=== PATIENT | female | born 1985 | race Caucasian/White ===

== ENCOUNTER 2016-11-10 19:25 | Inpatient (IN) | payer MEDICAID ==
[~2016-11-10] VITALS: Ht 154.9 cm; Wt 65.7 kg
[2016-11-10 20:00] VITALS: RESP 18
[2016-11-10] MEDS ORDERED: LACTATED RINGER'S 1,000 ML IV SCH (20:03)
[2016-11-10] MEDS ORDERED: LIDOCAINE 1% (MPF) 30 ML INJ ONE (20:03)
[2016-11-10] MEDS ORDERED: AMPICILLIN 2 GM/NS (PMX) 100 ML ONE (20:03)
[2016-11-10 20:11] VITALS: Ht 154.9 cm; Wt 65.7 kg
[2016-11-10] MEDS ORDERED: PRENAT PO (20:13)
--- NOTE | 2016-11-10 20:21 | LDN ---
Date/Time of Note Date/Time of Note DATE: 11/10/16 TIME: 20:20 Delivery Summary Weeks of Gestation 38+wks GA Placenta Delivered: Spontaneously Meconium: none Episiotomy: No Perineal laceration: 1 Anesthesia type: None Estimated blood loss: 200 Sponge & Needle done & correct: Yes All needle counts correct: Yes Any foreign bodies felt in the: No Problems: BRIAN KAHN M.D. Nov 10, 2016 20:21
--- NOTE | 2016-11-10 20:22 | TRIAGE ---
OB Triage Datetime Report Generated by CPN: 11/10/2016 20:22 Datetime: 11/10/2016 19:54 Stage of : OB Triage Datetime: 11/10/2016 19:50 EGA: 38.1 Datetime: 11/10/2016 19:47 Vaginal Exam Dilatation (cms): 10.0 Effacement (%): 100 Station: -1 Exam By: M JASON Vaginal Bleeding: Normal Show Cervix, Position: Midposition Datetime: 11/10/2016 19:46 Labor Evaluation Monitor Mode: External Contraction Comments: APPLIED Heart Rate Monitor Mode: External US Comments: APPLIED Datetime: 11/10/2016 19:44 Stage of : OB Triage Datetime: 11/10/2016 19:33 Time of Arrival: 11/10/2016 19:21 Arrived By: Ambulatory Arrived From: Home Chief Complaint: Abd/back pain. Ucs since 1400 Movement: Present Contractions: Regular Time Contractions Began: 11/10/2016 14:00 Contractions: q 3min Rupture of Membranes: Denies Vaginal Bleeding: Scant Vaginal Discharge: Denies Recent Sexual Intercouse: Denies Abdominal Trauma: Not Applicable Patient Complaints: Contractions; Back Pain Initial Plan: ZHAO
--- NOTE | 2016-11-10 20:24 | HP ---
Date/Time of Note Date/Time of Note DATE: 11/10/16 TIME: 20:23 OB - History Hx of Present Free Text/Dictation @38+wks GA in labor : 3 Para: 2 Care: Good Care Ultrasounds: Normal mid trimester US Obstetrical Complications: None Medical Complications: None Past Family/Social History * Past Medical, Surgical, Family and Obstetric Histories reviewed from chart. OB Admission Exam Physical Exam Abdomen: WNL Extremities: Normal Cervical Dilatation: 10cm Effacement: 100% Station: -1 Membranes: Intact Heart Rate: 140's Accelerations: Accelerations Present Decelerations: No Decelerations Varibility: Moderate Contractions on Admission: < 5 Minutes Apart OB Assessment/Plan Reason for admission: observation Plan: Expectant Management BRIAN KAHN M.D. Nov 10, 2016 20:24
[2016-11-10] MEDS ORDERED: AMPICILLIN 2 GM/NS (PMX) 100 ML IV ONE (20:30)
[2016-11-10] MEDS ORDERED: METHYLERGONOVINE 0.2 MG INJ IM PRN (20:30)
[2016-11-10] MEDS ORDERED: MISOPROSTOL 200 MCG TAB PR PRN (20:30)
[2016-11-10] MEDS ORDERED: LACTATED RINGER'S 1,000 ML IV PRN (20:30)
[2016-11-10] MEDS ORDERED: CARBOPROST 250 MCG INJ IM PRN (20:30)
[2016-11-10] MEDS ORDERED: LIDOCAINE 1% (MPF) 30 ML INJ INJ PRN (20:30)
[2016-11-10] MEDS ORDERED: OXYTOCIN 30 UNITS/LR 500 ML IV PRN (20:30)
[2016-11-10] MEDS ORDERED: OXYTOCIN 30 UNITS/LR 500 ML IV SCH ×2 (20:30)
[2016-11-10 20:41] LABS: ADD SCAN DIFF NO
[2016-11-10 20:44] LABS: BASOPHILS % 0.2 % (0.0-2.0); EOSINOPHILS # 0.1 10^3/ul (0.0-0.5); EOSINOPHILS % 0.4 % (0.0-7.0); HEMATOCRIT 37.2 % (37.0-47.0); HEMOGLOBIN 13.1 g/dl (12.0-16.0); LYMPHOCYTES # 2.3 10^3/ul (0.8-2.9); LYMPHOCYTES % 19.5 % (15.0-51.0); MEAN CORPUSCULAR HEMOGLOBIN 31.8 pg (29.0-33.0); MEAN CORPUSCULAR HGB CONC 35.2 g/dl (32.0-37.0); MEAN CORPUSCULAR VOLUME 90.3 fl (82.0-101.0); MEAN PLATELET VOLUME 10.5 fl (7.4-10.4); MONOCYTE # 0.9 10^3/ul (0.3-0.9); MONOCYTES % 7.4 % (0.0-11.0); NEUTROPHIL # 8.4 10^3/ul (1.6-7.5); NEUTROPHILS % 71.6 % (39.0-77.0); PLATELET COUNT 307 10^3/UL (140-415); RED BLOOD COUNT 4.12 10^6/ul (4.20-5.40); RED CELL DISTRIBUTION WIDTH 12.8 % (11.5-14.5); WHITE BLOOD COUNT 11.7 10^3/ul (4.8-10.8)
[2016-11-10 20:58] LABS: INR 0.98
[2016-11-10 20:59] LABS: PARTIAL THROMBOPLASTIN TIME 30.8 Sec (25.0-35.0)
[2016-11-10] MEDS ORDERED: IBUPROFEN 600 MG TAB PO PRN (21:30)
[2016-11-10 22:35] VITALS: BP 135/66; PULSE 78; RESP 18
[2016-11-11] MEDS ORDERED: LANOLIN 7 GM TUBE TOP PRN
[2016-11-11] MEDS ORDERED: WITCH HAZEL/GLYCERIN PAD PR PRN
[2016-11-11] MEDS ORDERED: BENZOCAINE 20% 56 ML SPRAY TOP PRN
[2016-11-11] MEDS ORDERED: METHYLERGONOVINE 0.2 MG INJ IM PRN
[2016-11-11] MEDS ORDERED: OXYTOCIN 30 UNITS/LR 500 ML IV PRN
[2016-11-11] MEDS ORDERED: CARBOPROST 250 MCG INJ IM PRN
[2016-11-11] MEDS ORDERED: MISOPROSTOL 200 MCG TAB PR PRN
[2016-11-11] MEDS ORDERED: ZOLPIDEM 5 MG TAB PO PRN
[2016-11-11] MEDS ORDERED: SENNA/DOCUSATE NA (8.6MG/50MG) TAB PO PRN
[2016-11-11] MEDS ORDERED: OXYCODONE/ASPIRIN (4.88/325) TAB PO PRN
[2016-11-11] MEDS: IBUPROFEN 600 MG TAB PO SCH ×5 (00:08→23:59)
[2016-11-11] MEDS ORDERED: AMPICILLIN 1 GM/NS (PMX) 50 ML IV SCH (00:30)
[2016-11-11] MEDS: LACTATED RINGER'S 1,000 ML IV* SCH ×3 (00:56→15:35)
[2016-11-11 01:00] VITALS: BP 128/64; PULSE 74; RESP 18
[2016-11-11 03:15] VITALS: BP 131/68; PULSE 76; RESP 18
[2016-11-11 06:56] LABS: ADD SCAN DIFF NO
[2016-11-11 07:02] LABS: BASOPHILS % 0.1 % (0.0-2.0); EOSINOPHILS % 0.2 % (0.0-7.0); HEMATOCRIT 33.4 % (37.0-47.0); HEMOGLOBIN 11.5 g/dl (12.0-16.0); LYMPHOCYTES # 2.5 10^3/ul (0.8-2.9); LYMPHOCYTES % 15.5 % (15.0-51.0); MEAN CORPUSCULAR HEMOGLOBIN 31.5 pg (29.0-33.0); MEAN CORPUSCULAR HGB CONC 34.4 g/dl (32.0-37.0); MEAN CORPUSCULAR VOLUME 91.5 fl (82.0-101.0); MEAN PLATELET VOLUME 10.1 fl (7.4-10.4); MONOCYTE # 1.2 10^3/ul (0.3-0.9); MONOCYTES % 7.4 % (0.0-11.0); NEUTROPHIL # 12.2 10^3/ul (1.6-7.5); PLATELET COUNT 263 10^3/UL (140-415); RED BLOOD COUNT 3.65 10^6/ul (4.20-5.40); RED CELL DISTRIBUTION WIDTH 12.8 % (11.5-14.5)
[2016-11-11 08:30] VITALS: BP 100/54; PULSE 80; RESP 18
[2016-11-11] MEDS: SENNA/DOCUSATE NA (8.6MG/50MG) TAB PO SCH ×2 (08:30→21:11)
[2016-11-11 16:19] VITALS: BP 115/64; PULSE 75; RESP 18
--- NOTE | 2016-11-11 18:38 | QN ---
Documentation Comment Post normal vaginal delivery day 1 afebrile vital signs are stable Abdomen soft uterus firm lochia moderate extremity normal ambulation encouraged Laboratory Tests Test 11/10/16 19:45 11/10/16 20:00 11/11/16 06:40 Hepatitis B Surface Antigen NEGATIVE HIV (1&2) Antibody NEGATIVE White Blood Count 11.710^3/ul 16.010^3/ul Red Blood Count 4.1210^6/ul 3.6510^6/ul Hemoglobin 13.1g/dl 11.5g/dl Hematocrit 37.2% 33.4% Mean Corpuscular Volume 90.3fl 91.5fl Mean Corpuscular Hemoglobin 31.8pg 31.5pg Mean Corpuscular Hemoglobin Concent 35.2g/dl 34.4g/dl Red Cell Distribution Width 12.8% 12.8% Platelet Count 71856^3/UL 08148^3/UL Mean Platelet Volume 10.5fl 10.1fl Neutrophils % 71.6% 76.0% Lymphocytes % 19.5% 15.5% Monocytes % 7.4% 7.4% Eosinophils % 0.4% 0.2% Basophils % 0.2% 0.1% Nucleated Red Blood Cells % 0.0/100WBC 0.0/100WBC Neutrophils # 8.410^3/ul 12.210^3/ul Lymphocytes # 2.310^3/ul 2.510^3/ul Monocytes # 0.910^3/ul 1.210^3/ul Eosinophils # 0.110^3/ul 0.010^3/ul Basophils # 0.010^3/ul 0.010^3/ul Nucleated Red Blood Cells # 0.010^3/ul 0.010^3/ul Prothrombin Time 13.0Sec Prothrombin Time Ratio 1.0 INR International Normalized Ratio 0.98 Activated Partial Thromboplast Time 30.8Sec Current Medications Medications (Trade) Dose Ordered Sig/Odin Route PRN Reason Start Time Stop Time Status Last Admin Dose Admin Ampicillin (Ampicillin 2 Gm/ NS (Pmx)) 100 ml @ ud STK-MED ONCE .ROUTE 11/10/16 20:03 11/10/16 20:04 DC Lidocaine 30 ml 30 ml STK-MED ONCE .ROUTE 11/10/16 20:03 11/10/16 20:04 DC Lactated Ringer's 1,000 ml @ 125 mls/hr Q8H IV 11/10/16 20:03 11/10/16 23:37 DC Ampicillin 100 ml @ 100 mls/hr ONCE ONCE IV 11/10/16 20:30 11/10/16 21:29 DC 11/10/16 20:37 Ampicillin (Ampicillin 1 Gm/ NS (Pmx)) 50 ml @ 100 mls/hr Q4H IV 11/11/16 00:30 11/11/16 00:30 DC Lidocaine 30 ml 30 ml ONCE PRN INJ EPISIOTOMY/TEARING 11/10/16 20:30 11/10/16 23:37 DC Oxytocin/Lactated Ringer's 500 ml @ 125 mls/hr ONCE -MAY REPEAT X1 IV 11/10/16 20:30 11/10/16 23:37 DC 11/10/16 20:34 Oxytocin/Lactated Ringer's 500 ml @ 125 mls/hr ONCE IV 11/10/16 20:30 11/10/16 23:37 DC 11/10/16 20:36 Lactated Ringer's 1,000 ml @ 2,000 mls/hr Q30M PRN IV PRE-EPIDURAL BOLUS 11/10/16 20:30 11/10/16 23:37 DC Oxytocin/Lactated Ringer's 500 ml @ 0 mls/hr ONCE PRN IV For Hemorrhage Management 11/10/16 20:30 11/10/16 23:37 DC Methylergonovine Maleate (Methergine) 0.2 mg ONCE PRN IM VAGINAL BLEEDING 11/10/16 20:30 11/10/16 23:37 DC Carboprost Tromethamine (Hemabate) 250 mcg ONCE PRN IM VAGINAL BLEEDING 11/10/16 20:30 11/10/16 23:37 DC Misoprostol (Cytotec) 1,000 mcg ONCE PRN OR VAGINAL BLEEDING 11/10/16 20:30 11/10/16 23:37 DC Ibuprofen 600 mg 600 mg ONCE PRN PO Mild Pain (Pain Score 1-3) 11/10/16 21:30 11/10/16 23:37 DC 11/10/16 21:31 Lactated Ringer's (Lr) 1,000 ml @ 125 mls/hr Q8H IV* 11/10/16 23:35 11/11/16 16:21 DC 11/11/16 00:56 Ibuprofen (Motrin) 600 mg Q6 PO 11/11/16 00:00 11/11/16 18:08 Oxycodone/Aspirin (Percodan) 2 tab Q3H PRN PO PAIN LEVEL 6-10 11/11/16 00:00 Zolpidem Tartrate (Ambien) 5 mg QHS PRN PO INSOMNIA 11/11/16 00:00 Senna/Docusate Sodium (Senokot-S) 1 tab BID PO 11/11/16 09:00 11/11/16 08:30 Senna/Docusate Sodium (Senokot-S) 1 tab BID PRN PO CONSTIPATION 11/11/16 00:00 Witch Phoebe/ Glycerin (Tucks Pads) 1 pad BEDSIDE MEDICATION PRN OR HEMORRHOID/EPISIOTMY PAIN 11/11/16 00:00 11/11/16 00:09 Benzocaine (Dermoplast Lacey) 1 spray BEDSIDE MEDICATION PRN TOP HEMORRHOID/EPISIOTMY PAIN 11/11/16 00:00 11/11/16 00:09 Lanolin ([id number]) 1 applic BEDSIDE MEDICATION PRN TOP BEDSIDE FOR HERNAN TO NIPPLES 11/11/16 00:00 11/11/16 08:30 Diphtheria/ Tetanus/Acell Pertussis 0.5 ml 0.5 ml ONCE ONCE IM* 11/12/16 09:00 11/12/16 09:01 Oxytocin/Lactated Ringer's 500 ml @ 0 mls/hr ONCE PRN IV For Hemorrhage Management 11/11/16 00:00 Methylergonovine Maleate (Methergine) 0.2 mg ONCE PRN IM VAGINAL BLEEDING 11/11/16 00:00 Carboprost Tromethamine (Hemabate) 250 mcg ONCE PRN IM VAGINAL BLEEDING 11/11/16 00:00 Misoprostol (Cytotec) 1,000 mcg ONCE PRN OR VAGINAL BLEEDING 11/11/16 00:00 MENDOZA CRUZ MD Nov 11, 2016 18:38
[2016-11-11 19:30] VITALS: BP 114/71; PULSE 71; RESP 19
[2016-11-12 03:30] VITALS: BP 101/56; PULSE 75; RESP 19
[2016-11-12] MEDS: IBUPROFEN 600 MG TAB PO SCH ×2 (05:30→12:58)
[2016-11-12 08:30] VITALS: BP 106/76; PULSE 87; RESP 19
[2016-11-12] MEDS ORDERED: DIPHTH/TET/ACEL PERTUSS (ADULT) 0.5 ML VIAL IM* ONE (09:00)
[2016-11-12] MEDS: SENNA/DOCUSATE NA (8.6MG/50MG) TAB PO SCH (10:31)
[2016-11-12 10:45] LABS: RUBELLA ANTIBODY - IGG 6.23 index
--- NOTE | 2016-11-12 10:58 | PD.PPDC ---
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
--- NOTE | 2016-11-12 10:59 | DS ---
Date/Time of Note Date/Time of Note DATE: 11/12/16 TIME: 10:58 Discharge Summary Admission/Discharge Info Admit Date/Time Nov 10, 2016 at 19:53 Discharge Date/Time November 12, 2016 at 1055 Patient Condition: Good Procedures Normal vaginal delivery Hx of Present Illness Term admitted to [facility] for labor Hospital Course Satisfactory uneventful Home Meds Reported Medications Multivit/Min/Fol Ac/Iron/Pren* ( S*) 1 Tab Tab, 1 TAB PO DAILY, TAB 11/10/16 Follow-up Plan instructions given appointment to clinic in 2 weeks Primary Care Provider Care Physician No Primary Time spent on discharge: < 30 minutes MENDOZA CRUZ MD Nov 12, 2016 10:59
== END 2016-11-12 15:00 | disposition home or self-care (01) | DRG 775 ==
LOC: OBT 19:25 → L-D 19:26 → OBT 20:06 → PP1 22:26
PROVIDERS: ADMIT Obstetrics & Gynecology; ATTEND Obstetrics & Gynecology
PROC: 10E0XZZ Delivery of Products of Conception, External Approach (ICD-10-PCS; principal; 2016-11-10)
PROC: 0HQ9XZZ Repair Perineum Skin, External Approach (ICD-10-PCS; 2016-11-10)
PROC: 3E0234Z Introduction of Serum, Toxoid and Vaccine into Muscle, Percutaneous Approach (ICD-10-PCS; 2016-11-12)
DX: O70.0 First degree perineal laceration during delivery (principal); Z23 Encounter for immunization; Z3A.38 38 weeks gestation of pregnancy; Z37.0 Single live birth
CPT/HCPCS: 85025; 85610; 85730; 86592; 86703; 86762; 86900; 86901; 87340; 90715; G0463; J0290; J2590; J7120